=== PATIENT | female | born 1955 | race Asian ===

== ENCOUNTER 2016-07-31 19:49 | Emergency (ER) | payer OTHER ==
[~2016-07-31] VITALS: Ht 154.9 cm; Wt 47.5 kg
[~2016-07-31 19:49] MED LIST: ALBU8.5H3 INH; CEPH-443 PO; CLOT45CR19 VAG; HYDR-3720 PO; OMEP20CA16 PO; ONDA4TAB35 PO; PHEN-538 PO
[2016-07-31 20:15] VITALS: Ht 154.9 cm; Wt 47.5 kg
[2016-07-31] MEDS ORDERED: ACETAMINOPHEN 500 MG TAB PO STA (20:58)
[2016-07-31] MEDS ORDERED: BENZ100C70 PO (21:01)
[2016-07-31] MEDS ORDERED: GUAI120S26 PO (21:01)
[2016-07-31] MEDS ORDERED: DICY20TA59 PO (21:01)
[2016-07-31] MEDS ORDERED: ONDA4TAB14 PO (21:01)
[2016-07-31] MEDS ORDERED: OSLT75C PO (21:01)
[2016-07-31] MEDS ORDERED: ACET500C5 PO (21:01)
--- NOTE | 2016-07-31 21:23 | ERD ---
ER Documentation Chief Complaint Date/Time DATE: 07/31/16 TIME: 21:19 Chief Complaint flu,sweatingx 2 days, reacting to Nyquil by diarrhea HPI 61-year-old female presents here in the emergency department for cough runny nose, nasal congestion, diarrhea and vomiting for 2 days. Patient has been having the symptoms for the last 2 days. Patient has been having fever. Patient did not take any medications up and symptoms. Patient does not have any blood in the stool or black stool. Patient denies any blood in the vomit. Patient does not complain of abdominal pain. Patient does not have any flank pain. Patient does not have any chest pain or palpitations. Patient denies hematuria or dysuria. ROS All systems reviewed and are negative except as per history of present illness. Medications Home Meds Active Scripts Ondansetron (Ondansetron Odt) 4 Mg Tab.rapdis, 4 MG PO Q8 Y for NAUSEA AND/OR VOMITING, #30 TAB Prov:MARY HUBBARD NP 07/31/16 Dicyclomine Hcl* (Bentyl*) 20 Mg Tablet, 20 MG PO QID, #20 TAB Prov:MARY HUBBARD NP 07/31/16 Benzonatate* (Tessalon Perle*) 100 Mg Capsule, 100 MG PO Q8H Y for COUGH, #30 CAP Prov:MARY HUBBARD NP 07/31/16 Ltrrgcuejof-A-Kwijjrpkeb Hb* (Guaifenesin* DM Syrup) 120 Ml Syrup, 10 ML PO Q4H Y for COUGH, #120 ML Prov:MARY HUBBARD NP 07/31/16 Acetaminophen* (Tylophen*) 500 Mg Capsule, 1 CAP PO Q6H Y for PAIN AND OR ELEVATED TEMP, #20 CAP Prov:MARY HUBBARD NP 07/31/16 Oseltamivir Phosphate* (Tamiflu*) 75 Mg Capsule, 75 MG PO BID for 5 Days, CAP Prov:MARY HUBBARD NP 07/31/16 Clotrimazole* (Clotrimazole-7*) Vaginal Cream..g., 1 APPLIC VAG HS for 7 Days, EA Prov:MARY HUBBARD NP 07/06/16 Phenazopyridine Hcl* (Pyridium*) 200 Mg Tab, 200 MG PO TID Y for URINARY PAIN, # 6 TAB Prov:MARY HUBBARD NP 07/06/16 Cephalexin* (Keflex*) 500 Mg Capsule, 500 MG PO QID for 5 Days, CAP Prov:JOSÉ GIANG MD 06/16/16 Phenazopyridine Hcl* (Pyridium*) 200 Mg Tab, 200 MG PO TID Y for URINARY PAIN, # 6 TAB Prov:JOSÉ GIANG MD 06/16/16 Hydrocodone Bit-Acetaminophen* (Thompson*) 7.5-325 Tablet, 1 TAB PO Q4H Y for PAIN , #20 TAB Prov:MICHAELMYKEL DO 01/10/16 Ondansetron Hcl* (Zofran* ODT) 4 mg -ODT Tab.disper, 4 MG PO Q6 Y for NAUSEA AND /OR VOMITING, #20 TAB Prov:MICHAELMYKEL DO 01/10/16 Hydrocodone Bit-Acetaminophen* (Thompson*) 7.5-325 Tablet, 1 TAB PO Q4H Y for PAIN , #20 TAB Prov:ROSANNA GIRALDO DO 12/26/15 Reported Medications Albuterol Sulfate* (Proair HFA*) Unknown Strength Hfa.aer.ad, INH Q4H Y for WHEEZING AND SOB, #1 INHALER 07/06/16 Omeprazole* (Omeprazole*) 20 Mg Capsule.dr, 20 MG PO DAILY, #30 CAP 01/10/16 Allergies Allergies: Coded Allergies: ibuprofen (Unverified Adverse Reaction, Unknown, TACHYCARDIA, SWEATING, ) PMhx/Soc History of Surgery: No Anesthesia Reaction: No Hx Neurological Disorder: No Hx Respiratory Disorders: Yes (ASTHMA) Hx Cardiac Disorders: No Hx Psychiatric Problems: No Hx Miscellaneous Medical Probl: Yes (seasonal allergy) Hx Alcohol Use: No Hx Substance Use: No Hx Tobacco Use: No FmHx Family History: No coronary disease, No diabetes, No other Physical Exam Vitals Vital Signs Date Time Temp Pulse Resp B/P Pulse Ox O2 Delivery O2 Flow Rate FiO2 07/31/16 21:31 99.1 07/31/16 20:15 101.4 102 20 140/89 94 Physical Exam GENERAL: The patient is well developed and appropriate for usual state of health, in no apparent distress. HEENT: Atraumatic. Ears: Normal tympanic membrane, no erythema or bulging. No ear canal swelling. No ear discharge. Nose: Erythematous nasal turbinates with clear nasal. Throat: oropharynx are erythematous with postnasal drip. No tonsillar swelling or tonsillar exudates. No lymphadenopathy. CHEST: Clear to auscultation bilaterally. There are no rales, wheezes or rhonchi. HEART: Regular rate and rhythm. No murmurs, clicks, rubs or gallops. No S3 or S4. ABDOMEN: Soft, nontender and nondistended. Hyperactive bowel sounds. No rebound or guarding. No gross peritonitis. No gross organomegaly or masses. No Venegas sign or McBurney point tenderness. BACK: No midline or flank tenderness. EXTREMITIES: Equal pulses bilaterally. There is no peripheral clubbing, cyanosis or edema. No focal swelling or erythema. Full range of motion. Grossly neurovascularly intact. NEURO: Alert and oriented. Cranial nerves 2-12 intact. Motor strength in all 4 extremities with 5/5 strength. Sensation grossly intact. Normal speech and gait. SKIN: There is no apparent rash or petechia. The skin is warm and dry. HEMATOLOGIC AND LYMPHATIC: There is no evidence of excessive bruising or lymphedema. No gross cervical, axillary, or inguinal lymphadenopathy. Results 24 hrs Current Medications Medications (Trade) Dose Ordered Sig/Alcira Route PRN Reason Start Time Stop Time Status Last Admin Dose Admin Acetaminophen (Tylenol Tab) 500 mg ONCE STAT PO 07/31/16 20:58 07/31/16 20:59 DC 07/31/16 21:08 Patient was given medicines for fever control here in the emergency department. After treatment, patient temperature improved and lower. Patient appears well and is hemodynamically stable. Procedures/MDM Medical Decision Making: Patient symptoms are most likely consistent with to when the. There is low suspicion for Pneumonia at this time since patients lungs sounds are clear, patient O2 saturation is normal and patient doesnt show any respiratory distress. Radiology exams are indicated at this time. There is low suspicion for other cardiopulmonary emergencies at this time such as CHF, Pulmonary Embolism, Pneumothorax, Aortic Aneurysm or any other cardiopulmonary emergencies at this time. There is low suspicion for sepsis. Patient appears well and is hemodynamically stable. Fever is controlled with medicines. Disposition: Home. Condition: Stable Prescriptions: Tamiflu, Zofran, ibuprofen, Zyrtec, guaifenesin DM Instructions: Patient is advised to take medications as prescribed. Patient is advised to rest. Patient advised to increase fluid intake, do humidifier at home and if possible, do salt water gargles. Patient is advised that if symptoms are worse, shortness of breath, uncontrolled fever, stridor, vomiting, worst signs and symptoms to return to emergency department immediately. Otherwise, patient is advised to follow up with primary doctor in 5-7 days. Departure Diagnosis: Primary Impression: Influenza Condition: Stable Patient Instructions: Influenza (Adult) MARY HUBBARD NP Jul 31, 2016 21:23
[2016-07-31 21:31] VITALS: TEMP 99.1
== END 2016-07-31 21:31 | disposition home or self-care (01) ==
LOC: FTE 19:49
DX: R05 Cough (principal); R09.81 Nasal congestion; R50.9 Fever, unspecified; R19.7 Diarrhea, unspecified; R11.10 Vomiting, unspecified; J45.909 Unspecified asthma, uncomplicated
CPT/HCPCS: Z7502; Z7610; 99284

== ENCOUNTER 2018-05-26 13:26 | Emergency (ER) | END 2018-05-26 14:53 | disposition home or self-care (01) ==

== ENCOUNTER 2018-05-30 08:22 | Emergency (ER) | END 2018-05-30 09:57 | disposition home or self-care (01) ==

== ENCOUNTER 2018-05-30 14:49 | Emergency (ER) | END 2018-05-30 16:59 | disposition home or self-care (01) ==

== ENCOUNTER 2018-07-18 15:24 | Emergency (ER) | END 2018-07-18 23:13 | disposition home or self-care (01) ==

== ENCOUNTER 2018-08-06 23:58 | Emergency (ER) | payer OTHER ==
[~2018-08-06] VITALS: Ht 152.4 cm; Wt 45.9 kg
[~2018-08-06 23:58] MED LIST changes: +ALBU18HF INHALATION; +ALBU2.5V3 NEB; -ALBU8.5H3 INH; -CEPH-443 PO; +CETI10TA19 PO; -CLOT45CR19 VAG; +DICY10CA40 PO; -HYDR-3720 PO; +LEVO50TA7 PO; +LISI-313 PO; -OMEP20CA16 PO; +ONDA4TAB14 PO; -ONDA4TAB35 PO; -PHEN-538 PO
[2018-08-07 00:01] VITALS: Ht 152.4 cm; Wt 45.9 kg
[2018-08-07] MEDS ORDERED: ONDANSETRON (ODT) 4 MG TAB ODT STA (02:44)
[2018-08-07] MEDS ORDERED: LIDOCAINE/MYLANTA 40 ML BTL PO ONE (03:00)
[2018-08-07] MEDS ORDERED: UDMYL PO (03:55)
[2018-08-07] MEDS ORDERED: ONDA4TAB14 PO (03:56)
[2018-08-07 04:07] VITALS: BP 142/93; PULSE 80; RESP 18
--- NOTE | 2018-08-07 07:08 | ERD ---
ER Documentation Chief Complaint Chief Complaint ABD PAIN WITH N/V X1DAY HPI 63-year-old female has a history of hypertension, hypothyroidism presents for abdominal pain, nausea, vomiting times 1 day per patient developed the symptoms after eating. Pain is noted to be in the upper part of the abdomen. Pain is rated 7 out of 10. Described as sharp. Denies any fevers or diarrhea. ROS All systems reviewed and are negative except as per history of present illness. Medications Home Meds Active Scripts Ondansetron (Ondansetron Odt) 4 Mg Tab.rapdis, 4 MG PO Q6H PRN for NAUSEA AND/OR VOMITING, #15 TAB Prov:DEYVI CONDON DO 08/07/18 Magaldrate/Simethicone* (Mag-Al Plus Suspension*) 30 Ml Oral.susp, 30 ML PO Q6H PRN for GASTROINTESTINAL UPSET, #1 BOTTLE Prov:DEYVI CONDON DO 08/07/18 Ondansetron (Ondansetron Odt) 4 Mg Tab.rapdis, 4 MG PO Q6H PRN for NAUSEA AND/OR VOMITING, #10 TAB Prov:ABBI BRIGGS 07/18/18 Dicyclomine HCl (Dicyclomine HCl) 10 Mg Capsule, 10 MG PO TID PRN for ABDOMINAL CRAMPING, #20 CAP Prov:ABBI BRIGGS 07/18/18 Reported Medications Lisinopril* (Lisinopril*) 5 Mg Tablet, 5 MG PO DAILY, #30 TAB 07/18/18 Levothyroxine Sodium* (Levothyroxine Sodium*) 50 Mcg Tablet, 50 MCG PO BEFORE BREAKFAST, #30 TAB 07/18/18 Cetirizine Hcl* (Cetirizine Hcl*) 10 Mg Tablet, 10 MG PO DAILY, #30 TAB 07/18/18 Albuterol Sulfate* (Ventolin HFA*) 18 Gm Hfa.aer.ad, 2 PUFF INHALATION Q4H, #1 INHALER 07/18/18 Albuterol Sulfate* (Albuterol Sulfate* Neb) 0.083%-3 Ml Neb, 2.5 MG NEB Q4H PRN for NEEDED, #30 VIAL 07/18/18 Allergies Allergies: Coded Allergies: diphenhydramine (Verified Allergy, Intermediate, PALPITATIONS, 07/18/18) cephalexin (Verified Allergy, Mild, tongue swelling, 07/18/18) ibuprofen (Unverified Adverse Reaction, Unknown, TACHYCARDIA, SWEATING, 07/18/18) PMhx/Soc History of Surgery: No Anesthesia Reaction: No Hx Neurological Disorder: No Hx Respiratory Disorders: Yes (ASTHMA) Hx Cardiac Disorders: Yes (HTN) Hx Psychiatric Problems: No Hx Miscellaneous Medical Probl: Yes (seasonal allergy) Hx Alcohol Use: No Hx Substance Use: No Hx Tobacco Use: No Smoking Status: Never smoker Physical Exam Vitals Vital Signs Date Temp Pulse Resp B/P (MAP) Pulse Ox O2 O2 Flow FiO2 Time Delivery Rate 08/07/18 98.6 80 18 142/93 98 Room Air 04:07 (109) 08/07/18 98.4 90 19 150/85 98 00:01 (106) Physical Exam Const: No acute distress Resp: Clear to auscultation bilaterally Cardio: Regular rate and rhythm, no murmurs Abd: Soft, non distended. Normal bowel sounds, mild epigastric abdomen ten derness to palpation, no McBurney's point tenderness, no Venegas sign, no rebound or guarding noted Skin: No petechiae or rashes Back: No midline or flank tenderness Ext: No cyanosis, or edema Neur: Awake and alert Psych: Normal Mood and Affect Results 24 hrs Current Medications Medications Dose Sig/Alcira Start Time Status Last (Trade) Ordered Route PRN Stop Time Admin Dose Reason Admin Ondansetron 4 mg ONCE STAT 08/07/18 DC 08/07/18 HCl (Zofran ODT 02:44 02:53 Odt) 08/07/18 02:46 40 ml ONCE ONCE 08/07/18 DC 08/07/18 Miscellaneous PO 03:00 02:53 Medication 08/07/18 03:01 (Gi Cocktail (2)) Procedures/MDM Medical Decision Making: Differential diagnosis includes but not limited to acute gastritis, acute gastroenteritis, appendicitis, cholecystitis, pancreatitis. Patient appeared well on physical exam. Nontoxic appearing. Abdominal examination was relatively benign. There is low suspicion for acute abdomen. Patient given Zofran and a GI cocktail in the ER with relief of symptoms. Prescription(s): Patient given prescription for Zofran and Mylanta. Patient likely has an acute gastritis. Patient advised to follow up with PCP in 1-2 days. Patient advised to return to ED for new or worsening symptoms. Patient stable on discharge from the ED. Disclaimer: Inadvertent spelling and grammatical errors are likely due to EHR/dictation software use and do not reflect on the overall quality of patient care. Also, please note that the electronic time recorded on this note does not necessarily reflect the actual time of the patient encounter. Departure Diagnosis: Primary Impression: Abdominal pain Abdominal location: epigastric Qualified Codes: R10.13 - Epigastric pain Condition: Fair Patient Instructions: Abdominal Pain Referrals: [facility] YOU HAVE RECEIVED A MEDICAL SCREENING EXAM AND THE RESULTS INDICATE THAT YOU DO NOT HAVE A CONDITION THAT REQUIRES URGENT TREATMENT IN THE EMERGENCY DEPARTMENT. FURTHER EVALUATION AND TREATMENT OF YOUR CONDITION CAN WAIT UNTIL YOU ARE SEEN IN YOUR DOCTORS OFFICE WITHIN THE NEXT 1-2 DAYS. IT IS YOUR RESPONSIBILITY TO MAKE AN APPOINTMENT FOR FOLOW-UP CARE. IF YOU HAVE A PRIMARY DOCTOR --you should call your primary doctor and schedule an appointment IF YOU DO NOT HAVE A PRIMARY DOCTOR YOU CAN CALL OUR PHYSICIAN REFERRAL HOTLINE AT IF YOU CAN NOT AFFORD TO SEE A PHYSICIAN YOU CAN CHOSE FROM THE FOLLOWING [facility] [address] [facility]. [facility] [address] [facility] [facility] [address] [facility] [facility] [address] [facility]. [facility] [address] [facility]. [facility]. [address] Additional Instructions: Call your primary care doctor TOMORROW for an appointment during the next 1-2 days.See the doctor sooner or return here if your condition worsens before your appointment time. DEYVI CONDON DO Aug 07, 2018 07:08
== END 2018-08-07 04:09 | disposition home or self-care (01) ==
LOC: FTE 23:58
DX: R10.13 Epigastric pain (principal); R11.2 Nausea with vomiting, unspecified; I10 Essential (primary) hypertension; E03.9 Hypothyroidism, unspecified; J45.909 Unspecified asthma, uncomplicated
CPT/HCPCS: Z7610 ×2; 99283